=== PATIENT | female | born 1940 | race Caucasian/White ===

== ENCOUNTER 2017-05-05 21:04 | Emergency (ER) | payer MEDICARE, BC ==
[~2017-05-05 21:04] MED LIST: EPINEPHrine 1 MG/10 ML Abboject SYRINGE ONE; Sodium Bicarb 50 MEQ/50 ML Abboject 8.4% SYRINGE ONE; Sodium Chloride 0.9% 1,000 ML BAG ONE
== END 2017-05-05 23:15 | disposition expired ==
LOC: MADERS 21:04
DX: R09.2 Respiratory arrest (principal); Z79.82 Long term (current) use of aspirin; Z79.899 Other long term (current) drug therapy
CPT/HCPCS: 36416; 84443; 96374; 96375; 36415-59; J0171; J7050